=== PATIENT | male | born 1965 | race Caucasian/White ===

== ENCOUNTER → 2016-08-30 | Outpatient (CLI) | payer BC ==
[~2016-08-30] MED LIST: CLAR10TA13 PO; LISI5TAB PO; MUSCLE RELAXER PO; PAIN MED PO
[2016-08-30 13:09] LABS: ALBUMIN 3.7 GM/DL (3.2-5.2); ALBUMIN/GLOBULIN RATIO 1.06 (1.00-1.93); ALKALINE PHOSPHATASE 81 U/L (45-117); ALT/SGPT 27 U/L (12-78); ANION GAP 7 MEQ/L (8-16); AST/SGOT 18 U/L (15-37); BILIRUBIN,TOTAL 0.5 MG/DL (0.2-1.0); BLOOD UREA NITROGEN 16 MG/DL (7-18); CALCIUM LEVEL 8.7 MG/DL (8.5-10.1); CARBON DIOXIDE LEVEL 29 MEQ/L (21-32); CHLORIDE LEVEL 103 MEQ/L (98-107); CHOLESTEROL LEVEL 187 MG/DL (<200); CREATININE FOR GFR 1.02 MG/DL (0.70-1.30); GLOMERULAR FILTRATION RATE > 60.0 (>56); GLUCOSE, FASTING 100 MG/DL (70-105); SODIUM LEVEL 139 MEQ/L (136-145); TOTAL PROTEIN 7.2 GM/DL (6.4-8.2); TRIGLYCERIDES LEVEL 47 MG/DL (<150)
[2016-08-30 13:22] LABS: MEAN CORPUSCULAR HEMOGLOBIN 32.1 pg (27.0-33.0); MEAN CORPUSCULAR HGB CONC 33.6 g/dl (32.0-36.5); MEAN CORPUSCULAR VOLUME 95.6 fl (80.0-96.0); RED CELL DISTRIBUTION WIDTH 11.7 % (11.5-14.5); WHITE BLOOD COUNT 4.9 K/mm3 (4.0-10.0)
== END ==
LOC: M WUC 10:08
PROVIDERS: ATTEND Family Medicine
DX: Z00.00 Encounter for general adult medical examination without abnormal findings (principal)

== ENCOUNTER 2019-05-30 14:10 | Emergency (ER) | payer OTHER, BC ==
[~2019-05-30] VITALS: Ht 177.8 cm; Wt 98.1 kg
--- NOTE | 2019-05-30 14:49 | REP ---
Four views right foot: 05/30/2019. Indication: Right foot trauma. Pain. Comparison: None. Findings: There is no acute fracture, subluxation or dislocation. Osteoarthritic sequelae of the first MTP joint is noted. No lytic or blastic lesions are present. Impression: No acute osseous right foot injury. Electronically Signed by Juaquin Contreras DO 05/30/2019 02:42 P
[2019-05-30 15:34] VITALS: BP 131/75
--- NOTE | 2019-05-30 15:34 | REP ---
RIGHT CALCANEUS, TWO VIEWS: Two views of the right calcaneus performed and demonstrates no fracture, dislocation or intrinsic bone disease. IMPRESSION: No fracture or dislocation. Electronically Signed by Andrew Ruiz MD 05/31/2019 11:24 A
== END 2019-05-30 15:39 | disposition home or self-care (01) ==
LOC: M ED 14:10
DX: S90.31XA Contusion of right foot, initial encounter (principal); V49.9XXA Car occupant (driver) (passenger) injured in unspecified traffic accident, initial encounter; Y92.410 Unspecified street and highway as the place of occurrence of the external cause; Z79.899 Other long term (current) drug therapy

== ENCOUNTER 2020-02-20 08:30 | Day surgery (SDC) | payer BC, OTHER ==
[2020-02-20] MEDS ORDERED: LIDOCAINE 2% 100MG/5ML SDV (FOR ANES.) As Ordered ONE (09:29)
[2020-02-20] MEDS ORDERED: propofoL 200 MG/20 ML VIAL As Ordered ONE (09:29)
[2020-02-20] MEDS ORDERED: ePHEDrine SULFATE 25 MG/5 ML(5MG/ML) SYRINGE As Ordered ONE (10:25)
--- NOTE | 2020-03-19 11:28 | ROOR ---
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 Procedure: Pre-Anesthesia Assessment: - The heart rate, respiratory rate, oxygen saturations, blood pressure, adequacy of pulmonary ventilation, and response to care were monitored throughout the procedure. The Colonoscope was introduced through the anus and advanced to the cecum, identified by appendiceal orifice and ileocecal valve. The colonoscopy was performed without difficulty. The patient tolerated the procedure well. The quality of the bowel preparation was excellent. Findings: The perianal and digital rectal examinations were normal. Non-bleeding internal hemorrhoids were found during retroflexion. The hemorrhoids were small and Grade I (internal hemorrhoids that do not prolapse). Scattered small-mouthed diverticula were found in the recto-sigmoid colon, sigmoid colon and descending colon. A small polyp was found at 40 cm proximal to the anus. The polyp was sessile. The polyp was removed with a cold biopsy forceps. Resection and retrieval were complete. The exam was otherwise without abnormality on direct and retroflexion views. The terminal ileum appeared normal. Impression: - Non-bleeding internal hemorrhoids. - Diverticulosis in the recto-sigmoid colon, in the sigmoid colon and in the descending colon. - One small polyp at 40 cm proximal to the anus, removed with a cold biopsy forceps. Resected and retrieved. - The examination was otherwise normal on direct and retroflexion views. - The examined portion of the ileum was normal. - The exam was otherwise normal to the cecum. Recommendation: - Patient has a contact number available for emergencies. The signs and symptoms of potential delayed complications were discussed with the patient. Return to normal activities tomorrow. Written discharge instructions were provided to the patient. - High fiber diet. - Discharge patient to home. - Await pathology results. - Repeat colonoscopy in 5 years for screening purposes. - Return to referring physician. - Telephone GI clinic for pathology results in 1 week. - The findings and recommendations were discussed with the patient. Brian Birmingham MD Brian Birmingham MD 02/20/2020 9:37:38 AM Electronically signed by Brian Birmingham MD Number of Addenda: 0 Note Initiated On: 02/20/2020 9:11 AM Estimated Blood Loss: Estimated blood loss: none.
== END 2020-02-20 11:36 | disposition home or self-care (01) ==
LOC: M SDC 08:30
PROVIDERS: ATTEND Internal Medicine Gastroenterology
DX: Z12.11 Encounter for screening for malignant neoplasm of colon (principal); Z80.0 Family history of malignant neoplasm of digestive organs; K64.0 First degree hemorrhoids; K63.5 Polyp of colon; K57.30 Diverticulosis of large intestine without perforation or abscess without bleeding; Q44.6 Cystic disease of liver; K64.4 Residual hemorrhoidal skin tags; I50.9 Heart failure, unspecified; Z79.82 Long term (current) use of aspirin; Z79.891 Long term (current) use of opiate analgesic; Z79.899 Other long term (current) drug therapy; Z95.0 Presence of cardiac pacemaker

== ENCOUNTER → 2020-09-24 | Outpatient (CLI) | payer OTHER ==
--- NOTE | 2020-09-24 17:33 | REP ---
INDICATION: SPONDYLOSIS W MYLEOPATHY L REGION. Repeat dictation, Preliminary report is provided at the time of the exam by toyin GARRETT. COMPARISON: Comparison study September 21, 2017.. TECHNIQUE: Helical scanning is acquired 4 mm axial images are generated. Coronal and sagittal MPR images are provided. FINDINGS: Lumbar vertebral body heights are preserved. Alignment is normal. There is no evidence of spondylolysis or spondylolisthesis. There is degenerative disc disease at L5-S1 with disc space narrowing, vacuum phenomena, and endplate sclerosis. These changes are stable when compared with the September 21, 2017 prior study. There is mild discogenic spurring in each neural foramen but neural foramina appear adequate. There is mild narrowing of the L4-5 disc as well. Mild diffuse disc bulging is present at L4-5 unchanged from the prior study. No central canal stenosis is noted. Canal size is borderline unchanged. No foraminal narrowing is seen at L4-5. At L3-4, there is minimal diffuse disc bulging. Mild central canal stenosis is seen at L3-4 due to disc bulging in combination with ligamentum flavum hypertrophy. This is unchanged. At L2-3 there is minimal diffuse disc bulging. Borderline canal size. No other finding. At L1-2 no abnormality. No fracture or collapse is seen. Sacrum and SI joints appear intact no extra vertebral abnormality. Normal caliber aorta. IMPRESSION: Degenerative spondylosis changes. Degenerative disc disease is most pronounced at L5-S1. There is central canal stenosis at L3-4 and borderline canal size at L2-3 unchanged. <Electronically signed by Angelito Rosenbaum > 09/24/20 [id number]
== END ==
LOC: M RAD 14:12
PROVIDERS: ATTEND Physician Assistant
DX: M47.817 Spondylosis without myelopathy or radiculopathy, lumbosacral region (principal)

== ENCOUNTER → 2021-06-01 | Outpatient (CLI) | payer OTHER ==
--- NOTE | 2021-06-01 15:43 | REP ---
INDICATION: RENAL CYST. COMPARISON: 11/08/2012 the latest prior TECHNIQUE: Two views FINDINGS: Cardiomediastinal silhouette is unchanged. The heart is not enlarged. Dual chamber bipolar pacemaker device stable. The lung tillman are stable. No acute patchy parenchymal opacities or pleural effusions have developed. The pleural angles remain sharp. The osseous structures are stable and intact. IMPRESSION: There is no acute cardiopulmonary disease. <Electronically signed by Felice Momin > 06/01/21 [id number]
--- NOTE | 2021-06-01 15:58 | REP ---
INDICATION: RENAL CYST. COMPARISON: None. TECHNIQUE: Real-time sonographic evaluation of the kidneys with Doppler FINDINGS: Multiple ultrasonographic images of the right kidney show the right kidney to measure 11.1 x 5.8 x 5.9 cm. The renal cortical echotexture is unremarkable. There are no masses. There is good corticomedullary differentiation. There is no hydronephrosis. There are no perinephric fluid collections. Multiple ultrasonographic images of the left kidney show the left kidney to measure 12 x 5.6 x 5.7 cm. The renal cortical echotexture is unremarkable. There are no masses. There is good corticomedullary differentiation. There is no hydronephrosis. There are no perinephric fluid collections. IMPRESSION: Unremarkable renal ultrasonography. <Electronically signed by Felice Momin > 06/01/21 [id number]
== END ==
LOC: M RAD 14:53
PROVIDERS: ATTEND Family Medicine
DX: M54.50 Low back pain, unspecified (principal)

== ENCOUNTER → 2021-10-06 | Outpatient (CLI) | payer OTHER | LOC: M RADPRO 09:08 | PROVIDERS: ATTEND Orthopaedic Surgery Sports Medicine | DX: M23.300 Other meniscus derangements, unspecified lateral meniscus, right knee (principal); M94.261 Chondromalacia, right knee ==

== ENCOUNTER → 2021-10-14 | Outpatient (CLI) | payer OTHER | LOC: M SOG 08:24 | PROVIDERS: ATTEND Orthopaedic Surgery Adult Reconstructive Orthopaedic Surgery | DX: M25.562 Pain in left knee (principal) ==

== ENCOUNTER → 2021-11-25 | Outpatient (CLI) | payer OTHER ==
[~2021-11-25] MED LIST changes: +ASPI81TA26 PO
== END ==
LOC: M LABSMTC 09:52
PROVIDERS: ATTEND Anesthesiology
DX: Z01.812 Encounter for preprocedural laboratory examination (principal)

== ENCOUNTER 2021-11-30 10:04 | Day surgery (SDC) | payer OTHER ==
[~2021-11-30] VITALS: Ht 180.3 cm; Wt 98.0 kg
[~2021-11-30 10:04] MED LIST changes: +ACETAMINOPHEN 500 MG TAB PO ONE; +CelecoXIB 400 MG CAP PO ONE; +GABAPENTIN 300 MG CAP PO ONE; +LR 1,000 ML IV ONE; +ONDANSETRON 4MG/2ML VIAL IV ONE
[2021-11-30] MEDS ORDERED: LR 1,000 ML IV SCH ×2 (10:55→14:50)
[2021-11-30] MEDS ORDERED: INSULIN LISPRO (NovoLOG) PER UNIT SC PRN (10:55)
[2021-11-30] MEDS ORDERED: LIDOCAINE 2% 100MG/5ML SDV (FOR ANES.) As Ordered ONE (12:14)
[2021-11-30] MEDS ORDERED: propofoL 200 MG/20 ML VIAL As Ordered ONE (12:14)
[2021-11-30] MEDS ORDERED: fentaNYL 100 MCG/2 ML INJECTION As Ordered ONE (12:14)
[2021-11-30] MEDS ORDERED: dexameTHASONE 4 MG/ML 1ML VIAL (J1100 PER 1MG) As Ordered ONE (12:14)
[2021-11-30] MEDS ORDERED: ONDANSETRON 4MG/2ML VIAL As Ordered ONE (12:14)
[2021-11-30] MEDS ORDERED: MIDAZOLAM INJ 2MG/2ML VIAL (J2250 PER 1MG) As Ordered ONE (12:14)
[2021-11-30] MEDS ORDERED: EPINEPHrine INJ 1 MG/ML 1ML AMP As Ordered ONE ×2 (13:10→13:11)
[2021-11-30] MEDS ORDERED: BUPIVACAINE/EPIN 0.5% 30 ML VIAL As Ordered ONE (13:11)
[2021-11-30] MEDS ORDERED: fentaNYL 100 MCG/2 ML INJECTION IV PRN (14:50)
[2021-11-30] MEDS ORDERED: oxyCODONE 5MG TAB PO PRN (14:50)
[2021-11-30] MEDS ORDERED: ONDANSETRON 4MG/2ML VIAL IV PRN (14:50)
[2021-11-30 16:14] VITALS: BP 132/80
== END 2021-11-30 16:19 | disposition home or self-care (01) ==
LOC: M SDC 10:04
PROVIDERS: ATTEND Orthopaedic Surgery Adult Reconstructive Orthopaedic Surgery
DX: M94.261 Chondromalacia, right knee (principal); M17.31 Unilateral post-traumatic osteoarthritis, right knee; I72.9 Aneurysm of unspecified site; Z95.0 Presence of cardiac pacemaker; Z79.82 Long term (current) use of aspirin
CPT/HCPCS: 29877; J0171; J1100; J2250; J2405; J3010

== ENCOUNTER → 2022-01-07 | Outpatient (RCR) | payer OTHER ==
[~2022-01-07] MED LIST changes: -ACETAMINOPHEN 500 MG TAB PO ONE; -CelecoXIB 400 MG CAP PO ONE; -GABAPENTIN 300 MG CAP PO ONE; -LR 1,000 ML IV ONE; -ONDANSETRON 4MG/2ML VIAL IV ONE
== END ==
LOC: M PT 12-15 13:05
PROVIDERS: ATTEND Orthopaedic Surgery Adult Reconstructive Orthopaedic Surgery
DX: M17.31 Unilateral post-traumatic osteoarthritis, right knee (principal)

== ENCOUNTER 2022-01-20 11:58 | Outpatient (RCR) | payer OTHER | END 2022-02-07 | LOC: M PT 11:58 | PROVIDERS: ATTEND Orthopaedic Surgery Adult Reconstructive Orthopaedic Surgery | DX: M17.31 Unilateral post-traumatic osteoarthritis, right knee (principal) ==

== ENCOUNTER 2022-03-09 14:06 | Outpatient (RCR) | payer OTHER | END 2022-03-10 | LOC: M PT 14:06 | PROVIDERS: ATTEND Orthopaedic Surgery Adult Reconstructive Orthopaedic Surgery | DX: Z98.890 Other specified postprocedural states (principal) ==

== ENCOUNTER 2022-04-08 09:15 | Outpatient (RCR) | payer OTHER | END 2022-04-09 | LOC: M PT 09:15 | PROVIDERS: ATTEND Orthopaedic Surgery Adult Reconstructive Orthopaedic Surgery | DX: Z98.890 Other specified postprocedural states (principal) ==

== ENCOUNTER 2022-04-13 08:19 | Outpatient (RCR) | payer OTHER | END 2022-05-10 | LOC: M PT 08:19 | PROVIDERS: ATTEND Orthopaedic Surgery Adult Reconstructive Orthopaedic Surgery | DX: Z98.890 Other specified postprocedural states (principal) ==

== ENCOUNTER → 2022-10-06 | Outpatient (CLI) | payer OTHER | LOC: M SOG 15:02 | PROVIDERS: ATTEND Orthopaedic Surgery Adult Reconstructive Orthopaedic Surgery | DX: M25.561 Pain in right knee (principal) ==

== ENCOUNTER 2024-04-26 01:04 | Emergency (ER) | payer OTHER, SELFPAY ==
[~2024-04-26] VITALS: Ht 177.8 cm; Wt 93.5 kg
[2024-04-26 01:09] VITALS: BP 144/95; TEMP 96.5; O2SAT 98
[2024-04-26] MEDS ORDERED: LISI5TAB11 (06:05)
[2024-04-26] MEDS ORDERED: PRED20TA (06:05)
== END 2024-04-26 01:12 | disposition left against medical advice (07) ==
LOC: M ED 01:04
DX: Z53.21 Procedure and treatment not carried out due to patient leaving prior to being seen by health care provider (principal)

== ENCOUNTER 2024-04-26 05:57 | Day surgery (SDC) | payer OTHER, SELFPAY ==
[~2024-04-26] VITALS: Ht 177.8 cm; Wt 92.9 kg
[2024-04-26] MEDS ORDERED: PRED20TA (06:05)
[2024-04-26] MEDS ORDERED: LISI5TAB11 (06:05)
[2024-04-26] MEDS: GLUCAGON INJ 1MG VIAL IV STA (08:25)
[2024-04-26] MEDS: ONDANSETRON 4MG 2ML VIAL IV STA (12:20)
[2024-04-26] MEDS ORDERED: propofoL 200 MG/20 ML VIAL As Ordered ONE (12:56)
[2024-04-26] MEDS: LACTATED RINGER'S 1000 ML IV STA (12:56)
[2024-04-26] MEDS ORDERED: LIDOCAINE 2% 100MG/5ML SDV (FOR ANES.) As Ordered ONE (12:56)
[2024-04-26] MEDS ORDERED: ROCURONIUM BROMIDE 50MG/5ML VIAL As Ordered ONE (12:56)
[2024-04-26] MEDS ORDERED: ONDANSETRON 4MG 2ML VIAL As Ordered ONE (12:56)
[2024-04-26] MEDS ORDERED: SUGAMMADEX SODIUM 500 MG/5 ML VIAL (BRIDION) As Ordered ONE (13:29)
[2024-04-26] MEDS ORDERED: MIDAZOLAM INJ 2MG/2ML VIAL As Ordered ONE (13:30)
[2024-04-26 14:45] VITALS: TEMP 97.6
[2024-04-26 15:05] VITALS: BP 124/86; O2SAT 96
== END 2024-04-26 15:11 | disposition home or self-care (01) ==
LOC: M ED 05:57 → M SDC 05:58
PROVIDERS: ATTEND Surgery
DX: T18.128A Food in esophagus causing other injury, initial encounter (principal); Y92.9 Unspecified place or not applicable; K21.00 Gastro-esophageal reflux disease with esophagitis, without bleeding; K31.89 Other diseases of stomach and duodenum; I10 Essential (primary) hypertension; Z95.0 Presence of cardiac pacemaker; M54.9 Dorsalgia, unspecified; F10.90 Alcohol use, unspecified, uncomplicated; Z79.899 Other long term (current) drug therapy; Z79.82 Long term (current) use of aspirin; Z79.52 Long term (current) use of systemic steroids
CPT/HCPCS: 43247; 71046; 99284; J1610; J2250; J2405

== ENCOUNTER → 2024-05-29 | Outpatient (CLI) | payer OTHER ==
[~2024-05-29] MED LIST changes: +LISI5TAB11; +PRED20TA
[2024-05-29 19:42] LABS: BASO % 0.6 % (0.0-1.0); EOS # 0.5 10^3/uL (0.0-0.5); EOS % 6.5 % (0.0-3.0); HEMATOCRIT 45.8 % (42.0-52.0); HEMOGLOBIN 15.1 g/dl (13.5-17.5); LYMPH # 1.8 10^3/uL (1.5-5.0); LYMPH % 25.5 % (24.0-44.0); MEAN CORPUSCULAR HEMOGLOBIN 31.9 pg (27.0-33.0); MEAN CORPUSCULAR VOLUME 96.6 fl (80.0-96.0); MONO # 0.9 10^3/uL (0.0-0.8); MONO % 13.3 % (2.0-8.0); NEUTROPHILS # 3.7 10^3/uL (1.5-8.5); NEUTROPHILS % 53.5 % (36.0-66.0); PLATELET COUNT, AUTOMATED 257 10^3/uL (150-450); RED BLOOD COUNT 4.74 10^6/uL (4.30-6.10)
[2024-05-29 20:16] LABS: BILIRUBIN,DIRECT 0.2 MG/DL (<0.4); BILIRUBIN,TOTAL 0.7 MG/DL (0.3-1.2); TOTAL PROTEIN 7.5 G/DL (5.7-8.2)
[2024-05-30 09:52] LABS: WHITE BLOOD COUNT 6.9 10^3/uL (4.0-10.0)
== END ==
LOC: M WUC 15:38
PROVIDERS: ATTEND Family Medicine
DX: R21 Rash and other nonspecific skin eruption (principal); K21.00 Gastro-esophageal reflux disease with esophagitis, without bleeding

== ENCOUNTER 2024-06-28 07:25 | Day surgery (SDC) | payer OTHER ==
[~2024-06-28] VITALS: Ht 177.8 cm; Wt 89.1 kg
[~2024-06-28 07:25] MED LIST changes: -LISI5TAB11; +LISI5TAB11 PO; +OMEP40CA5 PO
[2024-06-28] MEDS ORDERED: LIDOCAINE 2% 100MG/5ML SDV (FOR ANES.) As Ordered ONE (08:30)
[2024-06-28] MEDS ORDERED: propofoL 200 MG/20 ML VIAL As Ordered ONE (08:30)
[2024-06-28 08:32] VITALS: TEMP 97.4
[2024-06-28 08:52] VITALS: BP 110/80; O2SAT 96
== END 2024-06-28 09:03 | disposition home or self-care (01) ==
LOC: M OPP 07:25
PROVIDERS: ATTEND Surgery
DX: K44.9 Diaphragmatic hernia without obstruction or gangrene (principal); R13.10 Dysphagia, unspecified; K21.9 Gastro-esophageal reflux disease without esophagitis; M19.90 Unspecified osteoarthritis, unspecified site; I44.30 Unspecified atrioventricular block; I71.40 Abdominal aortic aneurysm, without rupture, unspecified; Z95.0 Presence of cardiac pacemaker; Z79.82 Long term (current) use of aspirin; Z79.899 Other long term (current) drug therapy